=== PATIENT | female | born 1990 | race African-American/Black ===

== ENCOUNTER 2024-11-21 16:35 | Emergency (ER) | payer OTHER ==
[~2024-11-21] VITALS: Ht 160 cm; Wt 61.2 kg
[2024-11-21 16:41] VITALS: BP 128/97; TEMP 98.3
[2024-11-21 17:19] VITALS: O2SAT 99
== END 2024-11-21 17:21 | disposition home or self-care (01) ==
LOC: ER 16:51
DX: S09.8XXA Other specified injuries of head, initial encounter (principal); W18.2XXA Fall in (into) shower or empty bathtub, initial encounter; Y93.E1 Activity, personal bathing and showering; Y92.091 Bathroom in other non-institutional residence as the place of occurrence of the external cause; Y99.8 Other external cause status

== ENCOUNTER 2025-07-12 11:22 | Emergency (ER) | payer OTHER ==
[~2025-07-12] VITALS: Ht 160 cm; Wt 63.5 kg
[2025-07-12 11:28] VITALS: BP 145/93; TEMP 98
[2025-07-12 12:37] VITALS: O2SAT 97
== END 2025-07-12 12:38 | disposition left against medical advice (07) ==
LOC: ER 11:34
DX: Z53.21 Procedure and treatment not carried out due to patient leaving prior to being seen by health care provider (principal)